=== PATIENT | female | born 1965 | race African-American/Black ===

== ENCOUNTER 2017-02-05 17:22 | Emergency (ER) | payer OTHER ==
[~2017-02-05] VITALS: Ht 170.2 cm; Wt 90.0 kg
[~2017-02-05 17:22] MED LIST: CYMB30CA PO; HYDR50 PO; LOVA20TA PO; PRIN5TAB PO; QUET200 PO; QUET25 PO; VITA20002 PO
[2017-02-05 17:27] VITALS: BP 194/100; PULSE 70; RESP 20; TEMP 98.3; O2SAT 99
[2017-02-05 17:46] VITALS: BP 207/98
[2017-02-05] MEDS ORDERED: CYMB30CA PO (18:32)
[2017-02-05] MEDS ORDERED: LISI-519 PO (18:32)
[2017-02-05] MEDS ORDERED: QUET1TAB11 PO (18:32)
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
[2017-02-05] MEDS ORDERED: ACETAMINOPHEN/HYDROcodone 325 MG/5 MG TAB PO ONE (18:45)
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
[2017-02-05] MEDS ORDERED: TIZA4CAP3 PO (20:13)
[2017-02-05] MEDS ORDERED: HYDR-3533 PO (20:13)
== END 2017-02-05 20:46 | disposition home or self-care (01) ==
LOC: NEPD 17:22
DX: S16.1XXA Strain of muscle, fascia and tendon at neck level, initial encounter (principal); S63.501A Unspecified sprain of right wrist, initial encounter; M25.511 Pain in right shoulder; M54.6 Pain in thoracic spine; M25.561 Pain in right knee; F40.240 Claustrophobia; I10 Essential (primary) hypertension; Z87.39 Personal history of other diseases of the musculoskeletal system and connective tissue; V89.2XXA Person injured in unspecified motor-vehicle accident, traffic, initial encounter
CPT/HCPCS: 71010; 72050; 73030; 73110; 73564; 99284; L3908